=== PATIENT | male | born 1990 | race African-American/Black ===

== ENCOUNTER 2016-06-16 11:55 | Emergency (ER) | payer OTHER ==
[~2016-06-16] VITALS: Ht 172.7 cm; Wt 72.7 kg
[~2016-06-16 11:55] MED LIST: METR500T PO; ONDA8TAB10 PO
[2016-06-16 12:28] VITALS: BP 126/82; PULSE 86; RESP 18; O2SAT 99
--- NOTE | 2016-06-16 12:37 | ED.REPORT ---
HPI-General Illness Date of Service Jun 16, 2016 ED Provider: Stuart Carroll MD This is an otherwise healthy 25-year-old male who presents with a chief complaint of a sore throat that began approximately 2-3 weeks ago. The patient associates the throat with a headache, cough, nasal congestion, rhinorrhea. Admits chills but denies fevers, malaise, dyspnea, shortness of breath, wheezing , chest pain, abdominal pain, vomiting, diarrhea. Denies history of asthma. Nursing Notes Stated Complaint: COLD SYMPTOMS Chief Complaint: General Complaint Nursing Notes Reviewed: Yes Allergies: Coded Allergies: No Known Allergies (Unverified , 04/28/15) Scheduled Benzonatate (Benzonatate) 100 Mg Capsule 100 MG PO TID General Time Seen by MD: 12:36 Chief Complaint Sore throat Past Medical History Past Medical History None Past Surgical History hernia repair 06/2012 Smoking History Unknown if Ever Smoker Social History Other Social History: Local resident Ambulatory Status Independent Review of Systems Negative unless stated otherwise in history of present illness Physical Exam General: Well appearing, well developed, well nourished, no acute distress. Head: Atraumatic, normocephalic. No mastoid tenderness. Eyes: No scleral icterus or injection. No discharge. PERRL. Vision grossly intact. Ears: Pinna and tragus nontender with manipulation. External auditory canal patent, atraumatic and without discharge. Tympanic membrane garcia, shiny and translucent without fluid, bulging, retraction or perforation. Hearing grossly intact. Nose: Symmetrical, nares patent without discharge. No frontal or maxillary sinus tenderness. Mouth/pharynx: normal dentition, mucus membranes moist. Tonsils 2+ and symmetrical, uvula midline. Pharynx injected, no cobblestoning or discharge. Voice clear. Neck: No tenderness or lymphadenopathy. Trachea midline. Respiratory: Regular rate and rhythm. Breath sounds present, clear to auscultation and equal bilaterally. Cardiovascular: Regular rate and rhythm, without murmur, gallop or rub. No pedal edema. Gastrointestinal: Abdomen flat and non-tender without guarding or rebound. Bowel sounds normoactive. Skin: Warm and dry. Neurological: Grossly nonfocal. Psychological: Alert and oriented. Speech appropriate, linear and logical. Behavior appropriate. Vital Signs Vital Signs Date Time Temp Pulse Resp B/P Pulse Ox O2 Delivery O2 Flow Rate FiO2 2/7/17 12:28 36.4 86 18 126/82 99 Room Air Initial VS: Reviewed, Vital signs normal Interpretation & Diagnostics Interpretation & Diagnostics: Rapid strep negative Norma A & B are negative Re-Eval/Medical Decision Med Decision/Clinical Course Otherwise healthy 25-year-old male complaining of sore throat, headache, cough, nasal congestion and rhinorrhea for the last 2-3 weeks. Rapid strep and flu swabs are negative. History and physical are consistent with upper respiratory tract infection, reassuring regarding sinus infection, pneumonia, strep, mononucleosis. Discharged with instructions for [id number] analgesia, rest, fluids, Tessalon Perles, work note, referral for primary care follow-up, return precautions Discharge & Departure Primary Impression: Upper respiratory infection URI type: unspecified viral URI Qualified Code: J06.9 - Acute upper respiratory infection, unspecified Disposition: Home Discharge Condition All VS Reviewed: Yes Condition: Stable Patient Instructions: Upper Respiratory Infection (ED) Additional Instructions: Evaluation for sore throat in emergency department. History and physical are reassuring that this is unlikely to be a condition such as strep throat, pneumonia or a sinus infection that requires antibiotic treatment. Rapid strep test and influenza tests are both negative. I believe that you have a viral upper respiratory infection. This should resolve on its own within a week or so. Rest, drink small amounts of fluids throughout the day, and eat small amounts of food as tolerated. The treatment is largely symptomatic: I typically recommend doxylamine/ dextromethorphan (brand name: Robitussin Extra Strength Nighttime Cough DM) for use at night, which will help you sleep and reduce cough. If your pharmacy does not have this, ask your pharmacist to recommend an alternative. Pain and fever is best treated with 400 mg of ibuprofen (Advil, Motrin) every 6 hours, or 1000 mg of acetaminophen (Tylenol) every 6 hours. These drugs can be taken at the same time for more severe pain. Pseudoephedrine (Sudafed) taken in the morning will help relieve nasal congestion. In many pharmacies this is kept behind the counter, so ask the pharmacist. Cepacol lozenges are very helpful for sore throat. I will also prescribe Tessalon Perles to help control her lower cough at work during the day. I will provide her with a referral for primary care follow-up. Please contact them if your symptoms have not significantly improved in a week. Remember that sometimes a cough can take up to a month to completely resolve. Return to the emergency department for new or worsening symptoms including chest pain, shortness of breath, difficulty breathing or speaking. Referrals: Israel Carbajal MD EDSupervising Provider for [facility]: Stuart Carroll MD Attending Statement Attending attestation: I saw this patient in conjunction with Bladimir Horn PA-C. I agree with the workup, evaluation, treatment and disposition. Stuart Law MD, MD Jun 16, 2016 12:37 Bladimir Horn PA-C Jun 16, 2016 13:58
[2016-06-16] MEDS ORDERED: BENZ100C8 PO (14:00)
== END 2016-06-16 14:01 | disposition home or self-care (01) ==
LOC: SED 11:55
DX: J06.9 Acute upper respiratory infection, unspecified (principal); J02.9 Acute pharyngitis, unspecified; R51 Headache; R05 Cough; R09.81 Nasal congestion; R68.83 Chills (without fever)